=== PATIENT | female | born 1945 | race Caucasian/White ===

== ENCOUNTER 2019-06-15 03:17 | Outpatient (CLI) | payer OTHER | END 2019-06-15 23:59 | disposition home or self-care (01) | LOC: RT 03:17 | PROVIDERS: ATTEND Family Medicine | DX: J44.9 Chronic obstructive pulmonary disease, unspecified (principal); Z53.21 Procedure and treatment not carried out due to patient leaving prior to being seen by health care provider ==

== ENCOUNTER 2019-07-02 08:11 | Day surgery (SDC) | payer OTHER ==
[2019-07-02] VITALS (8 sets, daily range): BP systolic 117–144; BP diastolic 74–84
[~2019-07-02] VITALS: Ht 167.6 cm; Wt 64.0 kg
[2019-07-02] MEDS ORDERED: FLUT1BLS10 INH (09:05)
[2019-07-02] MEDS ORDERED: POTA99TA21 PO (09:05)
[2019-07-02] MEDS ORDERED: ATOR10TA70 PO (09:05)
[2019-07-02] MEDS ORDERED: BIOT5TAB PO (09:05)
[2019-07-02] MEDS ORDERED: SYN0.088T PO (09:05)
[2019-07-02] MEDS ORDERED: TRAZ-251 PO (09:05)
[2019-07-02] MEDS ORDERED: ALBU8.5H8 INH (09:05)
[2019-07-02] MEDS ORDERED: MELA10TA2 PO (09:05)
[2019-07-02] MEDS ORDERED: URSO300C2 PO (09:05)
[2019-07-02] MEDS ORDERED: CETI-194 PO (09:05)
[2019-07-02] MEDS ORDERED: midazolam 2 mg/2 ml injection IV PRN (09:45)
[2019-07-02] MEDS ORDERED: LIDOcaine 1%/PF 5ML 10 MG/ML VIAL SQ ONE (09:45)
[2019-07-02] MEDS ORDERED: fentaNYL/PF 50MCG/1 ML 2ML syringe IV PRN (09:45)
[2019-07-02] MEDS ORDERED: LIDOcaine 1%/PF 5ML 10 MG/ML VIAL ONE (10:10)
== END 2019-07-02 11:25 | disposition home or self-care (01) ==
LOC: SSTAY O 08:11
PROVIDERS: ATTEND Radiology Vascular & Interventional Radiology
DX: Z45.2 Encounter for adjustment and management of vascular access device (principal); E03.9 Hypothyroidism, unspecified; I10 Essential (primary) hypertension; E78.5 Hyperlipidemia, unspecified; M81.0 Age-related osteoporosis without current pathological fracture; J44.9 Chronic obstructive pulmonary disease, unspecified; Z90.710 Acquired absence of both cervix and uterus; Z90.49 Acquired absence of other specified parts of digestive tract; Z98.890 Other specified postprocedural states; Z79.899 Other long term (current) drug therapy; Z88.5 Allergy status to narcotic agent; Z88.8 Allergy status to other drugs, medicaments and biological substances; Z88.1 Allergy status to other antibiotic agents
CPT/HCPCS: 36590

== ENCOUNTER 2019-07-14 12:46 | Outpatient (CLI) | payer OTHER ==
[~2019-07-14] VITALS: Ht 167.6 cm; Wt 63.5 kg
[~2019-07-14 12:46] MED LIST: ALBU8.5H8 INH; ATOR10TA70 PO; BIOT5TAB PO; CETI-194 PO; FLUT1BLS10 INH; MELA10TA2 PO; POTA99TA21 PO; SYN0.088T PO; TRAZ-251 PO; URSO300C2 PO
[2019-07-14] MEDS ORDERED: albuterol 2.5 MG/3 ML nebule ONE (13:45)
[2019-07-14] MEDS ORDERED: albuterol 2.5 MG/3 ML nebule NEB ONE (14:45)
== END 2019-07-14 23:59 | disposition home or self-care (01) ==
LOC: RT 12:46
PROVIDERS: ATTEND Family Medicine
DX: J44.9 Chronic obstructive pulmonary disease, unspecified (principal)
CPT/HCPCS: 71046; 94060; 94727; 94729; 94760

== ENCOUNTER 2019-12-22 04:24 | Outpatient (CLI) | payer OTHER | END 2019-12-22 23:59 | disposition home or self-care (01) | LOC: RT 04:24 | PROVIDERS: ATTEND Family Medicine | DX: J44.9 Chronic obstructive pulmonary disease, unspecified (principal) | CPT/HCPCS: 94618 ==